=== PATIENT | male | born 1980 | race Caucasian/White ===

== ENCOUNTER 2016-05-18 09:08 | Emergency (ER) | payer OTHER ==
[2016-05-18 09:26] VITALS: RESP 18; TEMP 98; O2SAT 97
[2016-05-18 10:07] LABS: % IMMATURE GRANULYOCYTES 0.4 % (0.0-1.1); ABSOLUTE IMMATURE GRANULOCYTES 0.03 10^3/uL (0.00-0.10); ADD DIFF? NO; ADD MORPH? NO; ADD SCAN? NO; ATYPICAL LYMPHOCYTE FLAG 10 (0-99); FRAGMENT RBC FLAG 0 (0-99); HEMATOCRIT 46.8 % (40.0-51.0); HEMOGLOBIN 16.4 g/dL (13.7-17.5); LEFT SHIFT FLG 0 (0-99); LIPEMIA HEMOLYSIS FLAG 90 (0-99); MEAN CELL HEMOGLOBIN 31.7 pg (27.9-34.1); MEAN CELL VOLUME 90.5 fL (81.5-99.8); MEAN PLATELET VOLUME 9.1 fL (8.7-11.7); PLATELET CLUMPS FLAG 0 (0-99); PLATELET COUNT 322 10^3/uL (150-400); RED BLOOD CELL COUNT 5.17 10^6/uL (4.40-6.38); RED CELL DISTRIBUTION WIDTH 12.3 % (11.5-15.2)
--- NOTE | 2016-05-18 10:08 | UCPHY ---
H & P Patient Type: New Chief Complaint Nursing Narrative: awoke this am with RLQ pain since early this am - had normal BM cymro am with out relief- vomited X2 Time Seen by Provider: 05/18/16 09:48 HPI/ROS: This patient presents with a chief complaint of periumbilical abdominal pain which radiates to both testicles worse on the right and also the penis. He was 1st aware of symptoms at approximately 6:30 a.m. this morning since it awakened him from sleep. He describes the pain as crampy and initially felt that being active increased the pain however this is unchanged and movement now makes the pain worse. The pain does not radiate to the back. He has had several small bowel movements since the onset but these have been quite small. He feels that he might be constipated. He has not had any nausea, vomiting or fever. He feels the need to urinate frequently however there is minimal urine present. He has not had hematuria or dysuria. He denies any URI type symptoms. REVIEW OF SYSTEMS: Constitutional: No fever Eyes: No complaints ENT: Denies sore throat, congestion Respiratory: No cough, no shortness of breath Cardiac: No chest pain Gastrointestinal: Diminished appetite, see above Genitourinary: See above, no discharge Musculoskeletal: No back pain, no myalgias Skin: No rash Neurological: No headache Source: Patient, RN notes reviewed Exam Limitations: No limitations - Personal History Current Tetanus Diphtheria and Acellular Pertussis (TDAP): Yes - Medical/Surgical History Other PMH: denies - Family History Significant Family History: Other (This patient's father has a history of kidney stones) - Social History Smoking Status: Never smoked - Physical Exam Exam: GENERAL: Well-appearing, well-nourished and in no acute distress. HEAD: Atraumatic, normocephalic. EYES: sclera anicteric, conjunctiva are normal. ENT: nares patent, oropharynx clear without exudates. Moist mucous membranes. NECK: Normal range of motion, supple without lymphadenopathy or JVD. No tenderness LUNGS: Breath sounds clear to auscultation bilaterally and equal. No wheezes rales or rhonchi. HEART: Regular rate and rhythm without murmurs, rubs or gallops. ABDOMEN: Soft, normoactive bowel sounds. There is his mild tenderness is mainly in the periumbilical area and the hypogastrium. No guarding, no rebound. No masses appreciated. EXTREMITIES: Normal range of motion, NEUROLOGICAL: Cranial nerves II through XII grossly intact. Normal speech, normal gait. PSYCH: Normal mood, normal affect. SKIN: Warm, dry, normal turgor, no visible rashes or lesions. Back: No CVA or other tenderness. External genitalia: There is some tenderness in the right testicle but this is not appear to be enlarged. There is also tenderness on the right but this is quite mild. The right epididymis is also tender but nonswollen. The meatus and penis are unremarkable. Constitutional: Initial Vital Signs Temperature (C) 36.6 C 05/18/16 09:20 Heart Rate 95 05/18/16 09:20 Respiratory Rate 18 05/18/16 09:20 Blood Pressure 180/100 H 05/18/16 09:20 O2 Sat (%) 97 05/18/16 09:20 O2 Delivery Mode Room Air Allergies/Adverse Reactions: No Known Allergies Allergy (Unverified 12/18/09 12:18) Home Medications: Medication Instructions Recorded Amoxicillin Trihydrate 500 mg PO Q8 #40 cap 12/18/09 [Amoxicillin 500mg cap] Fluticasone Nasal [Flonase Nasal 1 sprays NASAL DAILY #1 mdi 12/18/09 [place]] NO HOME MEDS 12/18/09 Ondansetron Odt [Zofran Odt] 4 mg PO Q4PRN PRN #4 tab 05/18/16 oxyCODONE/APAP 5/325 [Percocet 1 tab PO Q4-6PRN PRN #15 tab 05/18/16 5/325 (RX)] Medical Decision Making - Diagnostics Imaging: A CT scan of the abdomen without contrast shows a distally located 2-3 mm stone with [id number] hydronephrosis on the right. ED Course/Re-evaluation: During his stay the patient developed severe pain for short. At the time but at the time of discharge his pain was quite tolerable. He is not experience nausea or vomiting. He has not experience flank pain. - Data Points Laboratory Results: Laboratory Results 05/18/16 09:40 05/18/16 09:40 05/18/16 05/18/16 05/18/16 09:40 09:40 09:40 WBC 7.71 10^3/uL 10^3/uL (3.80-9.50) RBC 5.17 10^6/uL 10^6/uL (4.40-6.38) Hgb 16.4 g/dL g/dL (13.7-17.5) Hct 46.8 % % (40.0-51.0) MCV 90.5 fL fL (81.5-99.8) MCH 31.7 pg pg (27.9-34.1) MCHC 35.0 g/dL g/dL (32.4-36.7) RDW 12.3 % % (11.5-15.2) Plt Count 322 10^3/uL 10^3/uL (150-400) MPV 9.1 fL fL (8.7-11.7) Neut % (Auto) 65.3 % % (39.3-74.2) Lymph % (Auto) 24.4 % % (15.0-45.0) [place] % (Auto) 7.4 % % (4.5-13.0) Eos % (Auto) 1.6 % % (0.6-7.6) Baso % (Auto) 0.9 % % (0.3-1.7) Nucleat RBC Rel Count 0.0 % % (0.0-0.2) Absolute Neuts (auto) 5.04 10^3/uL 10^3/uL (1.70-6.50) Absolute Lymphs (auto) 1.88 10^3/uL 10^3/uL (1.00-3.00) Absolute Monos (auto) 0.57 10^3/uL 10^3/uL (0.30-0.80) Absolute Eos (auto) 0.12 10^3/uL 10^3/uL (0.03-0.40) Absolute Basos (auto) 0.07 10^3/uL 10^3/uL (0.02-0.10) Absolute Nucleated RBC 0.00 10^3/uL 10^3/uL (0-0.01) Immature Gran % 0.4 % % (0.0-1.1) Immature Gran # 0.03 10^3/uL 10^3/uL (0.00-0.10) Sodium 141 mEq/L mEq/L (134-144) Potassium 4.2 mEq/L mEq/L (3.5-5.2) Chloride 103 mEq/L mEq/L (97-110) Carbon Dioxide 22 mEq/l mEq/l (22-31) Anion Gap 16 mEq/L mEq/L (8-16) BUN 17 mg/dL mg/dL (7-23) Creatinine 0.9 mg/dL mg/dL (0.7-1.3) Estimated GFR > 60 Glucose 130 mg/dL H mg/dL (70-100) Calcium 8.9 mg/dL mg/dL (8.5-10.4) Total Bilirubin 0.5 mg/dL mg/dL (0.1-1.4) AST 32 IU/L IU/L (17-59) ALT 63 IU/L IU/L (21-72) Alkaline Phosphatase 71 IU/L IU/L (38-126) Total Protein 7.5 g/dL g/dL (6.3-8.2) Albumin 4.2 g/dL g/dL (3.5-5.0) Urine Color YELLOW Urine Appearance HAZY Urine pH 5.5 (5.0-7.5) Ur Specific [place] 1.025 (1.002-1.030) Urine Protein TRACE H (NEGATIVE) Urine Ketones TRACE H (NEGATIVE) Urine Blood 3+ H (NEGATIVE) Urine Nitrate NEGATIVE (NEGATIVE) Urine Bilirubin NEGATIVE (NEGATIVE) Urine Urobilinogen 0.2 EU EU (0.2-1.0) Ur Leukocyte Esterase NEGATIVE (NEGATIVE) Urine RBC 50-182 /hpf H /hpf (0-3) Urine WBC 0-1 /hpf /hpf (0-3) Ur Epithelial Cells TRACE /lpf /lpf (NONE-1+) Urine Mucus 2+ /lpf H /lpf (NONE-1+) Urine Glucose NEGATIVE (NEGATIVE) Departure - Departure Disposition: Home, Routine, Self-Care Clinical Impression: Kidney stone on right side Condition: Good Instructions: Renal Colic (ED), Kidney Stones (ED) Additional Instructions: If you continue to have symptoms in 3 days you should be re-evaluated. Ibuprofen is frequently very effective for the pain caused by kidney stones. Diet as tolerated. Activity as tolerated. Adult Pain & Fever Control: We recommend Acetaminophen (Tylenol) and Ibuprofen (Motrin, Advil) for pain and fever control. When fever is high or pain severe, both drugs can be used at the same time, but at different intervals. Please note the time differences. Your dose is: Acetaminophen [650]mg every 4 to 6 hours ibuprofen [600]mg every [6] hours with food OR naproxen Sodium (Aleve) [440]mg every 12 hours. Note: do not take Acetaminophen with Hydrocodone (Vicodin, Lortab) or Oxycodone (Percocet). These medications also contain Acetaminophen. No more than 3000 mg of Acetaminophen should be taken in 24 hours (for an adult) . The maximal dose of ibuprofen that it is safe in a 24-hour period is 2400 mg. You may take 400 mg every 4 hours, 600 mg every 6 hours or 800 mg every 8 hours safely. Referrals: Melany Short MD [Primary Care Provider] - As per Instructions Prescriptions: Ondansetron Odt [Zofran Odt] 4 mg PO Q4PRN PRN #4 tab PRN Reason: For Nausea & Vomiting oxyCODONE/APAP 5/325 [Percocet 5/325 (RX)] 1 tab PO Q4-6PRN PRN #15 tab PRN Reason: pain - PQRS PQRS Measurement: Not applicable upper
[2016-05-18 10:09] LABS: COLOR YELLOW; LEUKOCYTE ESTERASE,URINE NEGATIVE (NEGATIVE); NITRITE,URINE NEGATIVE (NEGATIVE); PH,URINE 5.5 (5.0-7.5)
[2016-05-18 10:14] LABS: ALANINE AMINOTRANSFERASE 63 IU/L (21-72); ALBUMIN 4.2 g/dL (3.5-5.0); ALKALINE PHOSPHATASE 71 IU/L (38-126); ANION GAP 16 mEq/L (8-16); ASPARTATE AMINOTRANSFERASE 32 IU/L (17-59); BILIRUBIN,TOTAL 0.5 mg/dL (0.1-1.4); CALCIUM 8.9 mg/dL (8.5-10.4); CARBON DIOXIDE 22 mEq/l (22-31); CHLORIDE 103 mEq/L (97-110); CREATININE 0.9 mg/dL (0.7-1.3); GLOMERULAR FILTRATION RATE > 60; GLUCOSE 130 mg/dL (70-100); POTASSIUM 4.2 mEq/L (3.5-5.2); SODIUM 141 mEq/L (134-144); TOTAL PROTEIN 7.5 g/dL (6.3-8.2)
[2016-05-18 10:16] LABS: MUCUS 2+ /lpf (NONE-1+)
[2016-05-18 10:18] LABS: RBC,URINE 50-182 /hpf (0-3); WBC,URINE 0-1 /hpf (0-3)
[2016-05-18] MEDS ORDERED: ONDANSETRON 4 MG/2 ML VIAL IVP ONE (11:25)
[2016-05-18] MEDS ORDERED: KETOROLAC 30 MG/1 ML SDV IVP ONE (11:36)
[2016-05-18 11:51] VITALS: BP 156/62; PULSE 85
== END 2016-05-18 11:47 | disposition home or self-care (01) ==
LOC: CED 09:08
DX: N20.0 Calculus of kidney (principal); N23 Unspecified renal colic
CPT/HCPCS: 74176-PO; 80053-PO; 81003-PO; 81015-PO; 85025-PO; 96360-PO; 99204-PO; G0463-PO; J1885; J2405